=== PATIENT | female | born 1975 | race Two or more races ===

== ENCOUNTER → 2017-04-18 | Outpatient (CLI) | payer OTHER ==
[~2017-04-18] VITALS: Ht 152.4 cm; Wt 76.2 kg
== END | disposition home or self-care (01) ==
LOC: PPHC 13:20
DX: R05 Cough (principal); R09.81 Nasal congestion; J02.8 Acute pharyngitis due to other specified organisms

== ENCOUNTER 2017-06-09 14:39 | Emergency (ER) | payer OTHER ==
[~2017-06-09] VITALS: Ht 157.5 cm; Wt 72.6 kg
== END 2017-06-09 16:34 | disposition home or self-care (01) ==
LOC: ER 14:39
DX: T23.222A Burn of second degree of single left finger (nail) except thumb, initial encounter (principal); X10.2XXA Contact with fats and cooking oils, initial encounter; Y93.89 Activity, other specified; Y92.89 Other specified places as the place of occurrence of the external cause; Y99.8 Other external cause status

== ENCOUNTER 2018-01-24 09:49 | Emergency (ER) | payer OTHER ==
[~2018-01-24] VITALS: Ht 157.5 cm; Wt 76.7 kg
[2018-01-24] MEDS ORDERED: KETO10TA2 PO (15:36)
[2018-01-24] MEDS ORDERED: FLAGYL500MG PO (15:36)
[2018-01-24] MEDS ORDERED: CIPRO500 MG PO (15:36)
[2018-01-24] MEDS ORDERED: INTESTINEX680 M1 PO (15:36)
== END 2018-01-24 16:58 | disposition home or self-care (01) ==
LOC: ER 09:49
DX: K57.92 Diverticulitis of intestine, part unspecified, without perforation or abscess without bleeding (principal)

== ENCOUNTER 2021-09-13 10:54 | Emergency (ER) | payer OTHER ==
[~2021-09-13] VITALS: Ht 157.5 cm; Wt 81.2 kg
[~2021-09-13 10:54] MED LIST: CIPRO500 MG PO; FLAGYL500MG PO; INTESTINEX680 M1 PO; KETO10TA2 PO
== END 2021-09-13 14:49 | disposition home or self-care (01) ==
LOC: ER 10:54
DX: R10.11 Right upper quadrant pain (principal)